=== PATIENT | male | born 1970 | race Caucasian/White ===

== ENCOUNTER 2017-08-08 12:19 | Emergency (ER) | payer BC, OTHER ==
[~2017-08-08] VITALS: Ht 180.3 cm; Wt 103.8 kg
[2017-08-08 12:21] VITALS: TEMP 36.7; Ht 180.3 cm; Wt 103.8 kg
[2017-08-08] MEDS ORDERED: SODIUM CHLORIDE 0.9% 1000ML 500 ML IV STA (12:40)
[2017-08-08] MEDS ORDERED: OPTIRAY 320 IV PRN (12:45)
[2017-08-08] MEDS ORDERED: PARO1TAB29 PO (12:47)
--- NOTE | 2017-08-08 13:49 | DIAGNOSTIC IMAGING REPORT ---
ABD/PELVIS IV AND ORAL CONT CLINICAL HISTORY: 47 years-old Male presenting with LEFT RIB INJURY/LUQ PAIN. TECHNIQUE: Multidetector CT of the abdomen and pelvis was performed after the administration of oral and intravenous contrast. IV contrast: 94 mL of Optiray 320. A dose lowering technique was used consistent with the principles of ALARA (as low as reasonably achievable). COMPARISON: None. CT DOSE (mGy.cm): The estimated cumulative dose is 1424.[address] chest. FINDINGS: Ship Scaler topogram: Unremarkable. Lung bases: Minimal dependent changes likely atelectasis. Normal heart size. No pericardial or pleural effusion. Liver: Normal morphology. No liver lesion. Patent hepatic vasculature. Biliary: No intrahepatic or extrahepatic biliary ductal dilatation. Decompressed. Pancreas: Normal. Spleen: Normal. Adrenal glands: Normal. Kidneys and ureters: Bilateral nonobstructing renal calculi measuring up to 5 mm in the right kidney at the upper pole and 4 mm in the interpolar region of the left kidney. No hydronephrosis. Normal ureters. Bladder: Although underdistended, suggestion of mild circumferential bladder wall thickening. No perivesicular inflammatory change. Pelvic organs: Prostate and seminal vesicles normal. Bowel: Normal appendix. No bowel obstruction. Oral contrast is primarily limited to the stomach, which partially limits evaluation. Peritoneal cavity: No free fluid or intraperitoneal gas. Vasculature: Aorta and IVC patent and normal in caliber. Lymph nodes: No enlarged lymph nodes in the abdomen or pelvis. Abdominal wall: Small fat-containing left inguinal hernia. Musculoskeletal: Normal. IMPRESSION: 1. Bilateral nonobstructing nephrolithiasis. No evidence of ureteral calculus. 2. Although the bladder is under distended, suggestion of mild bladder wall thickening. Correlate with urinalysis to exclude cystitis. Electronically signed by: Karlos Mauro M.D. 08/08/2017 1:47 PM Dictated Date/Time: 08/08/2017 1:42 PM
--- NOTE | 2017-08-08 13:54 | DIAGNOSTIC IMAGING REPORT ---
(CHEST) THORAX WITH CLINICAL HISTORY: 47 years-old Male presenting with LEFT RIB INJURY/LUQ PAIN. TECHNIQUE: Multidetector CT imaging of the chest was performed after the administration of intravenous contrast. IV contrast: 94 mL of Optiray 320. A dose lowering technique was used consistent with the principles of ALARA (as low as reasonably achievable). COMPARISON: None. CT DOSE (mGy.cm): The estimated cumulative dose is 1424.68 mGy.cm. FINDINGS: Hot Shot topogram: Unremarkable. On soft tissue windows, normal thyroid and thoracic inlet. No axillary, supraclavicular, hilar, or mediastinal lymphadenopathy. Normal aorta. Normal heart size. No pericardial or pleural effusion. Upper abdomen normal. On lung windows, minimal dependent changes likely atelectasis. Solid 5 mm subpleural nodule in the left upper lobe (series 4 image 108). Airways patent. On bone windows, degenerative changes of the spine. Borderline osteopenia. Anterior wedging deformity of the T7 vertebral body consistent with compression fracture, age indeterminate. Minimal anterior vertebral body height loss with an endplate Schmorl's node noted at T11. IMPRESSION: 1. Compression fracture of T7, age indeterminate. Correlate for point tenderness. 2. Borderline osteopenia. 3. Minimal dependent atelectasis. 4. Solid 5 mm subpleural nodule in the left upper lobe. Follow-up per Drew Society 2017 recommendations. Please refer to below summary of Fleischner Society 2017 recommendations for follow-up of incidental CT nodules (H Daisy et al. Guidelines for management of incidental pulmonary nodules detected on CT images: From the Fleischner Society 2017. Radiology 2017; 284: 228-243.) SOLID NODULES Single nodule; size < 6 mm * Low risk patients: No routine follow-up * High risk patients: Optional CT at 12 months Single nodule; size 6-8 mm * Low risk patients: CT at 6-12 months, then consider CT at 18-24 months * High risk patients: CT at 6-12 months, then at 18-24 months Single nodule; size > 8 mm * Either low or high risk patients: Considered CT at 3 months, PET/CT, or tissue sampling Multiple nodules; size < 6 mm * Low risk patients: No routine follow up * High risk patients: Optional CT at 12 months Multiple nodules; size 6-8 mm * Low risk patients: CT at 3-6 months, then consider CT at 18-24 months * High risk patients: CT at 3-6 months, then at 18-24 months Multiple nodules; size > 8 mm * Low risk patients: CT at 3-6 months, then consider at 18-24 months * High risk patients: CT at 3-6 months, then at 18-24 months Note: These guidelines apply to incidental nodules. These guidelines do not apply to patients younger than 35 years, immunocompromised patients, or patients with cancer. * Low risk patients: Minimal or absent history of smoking and/or other known risk factors * High risk patients: History of smoking, exposure to other carcinogens, emphysema, fibrosis, upper lobe location, family history of lung cancer, etc. * If a nodule up to 8 mm is partly solid or is ground glass, further follow-up is required after 24 months to exclude possible slow growing adenocarcinoma. SUBSOLID NODULES Single ground-glass nodule * Nodule size < 6 mm: No routine follow-up * Nodule size > or = 6 mm: CT at 6-12 months to confirm persistence, then CT every 2 years until 5 years Single part-solid nodule * Nodule size < 6 mm: No routine follow-up * Nodules size > or = 6 mm: CT at 3-6 months to confirm persistence. If unchanged and solid component remains < 6 mm, annual CT should be performed for 5 years Multiple nodules * Nodule size < 6 mm: CT at 3-6 months. If stable, consider CT at 2 and 4 years. * Nodules size > or = 6 mm: CT at 3-6 months. Subsequent management based on the most suspicious nodule(s) Electronically signed by: Karlos Mauro M.D. 08/08/2017 1:53 PM Dictated Date/Time: 08/08/2017 1:47 PM
[2017-08-08 14:20] VITALS: BP 134/85; PULSE 72; O2SAT 95
[2017-08-08] MEDS ORDERED: HYDR-5688 PO (14:20)
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
[2017-08-08 14:22] LABS: ISTAT IONIZED CALCIUM 1.19 mmol/l (1.12-1.32)
== END 2017-08-08 14:34 | disposition home or self-care (01) ==
LOC: C.EDB 12:21 → C.EDD 14:34
DX: S20.302A Unspecified superficial injuries of left front wall of thorax, initial encounter (principal); W22.8XXA Striking against or struck by other objects, initial encounter; Y92.9 Unspecified place or not applicable; Z87.442 Personal history of urinary calculi; Z79.899 Other long term (current) drug therapy